=== PATIENT | female | born 1975 | race Caucasian/White ===

== ENCOUNTER 2025-05-02 18:39 | Emergency (ER) | payer MEDICAID, SELFPAY ==
[2025-05-02 18:41] VITALS: BP 132/97; PULSE 80; RESP 17; TEMP 37; O2SAT 98; BMI 35.0
--- OUTSIDE RECORDS SUMMARY | 2025-05-02 18:45 | XMS_ITS | Clinical Summary ---
Author Organization [facility] Rossy ezequiel [place] Address [address] [place] [address] Phone Care Team Providers Care Line Up Worker Name Role Phone Unavailable Primary Care Provider Unavailabl e Allergies Active Allergy Reactions Criticality Noted Date Comments Hydroxyzine Nausea and Vomiting,Dizziness Low 12/24 Nortriptyline Other (See Comments),Weakness Low Nortriptyline Angioedema High 12/24/2018 Medications diazepam (VALIUM) 2 mg Oral tablet Take 2 mg by mouth every 6 hours as needed. Active albuterol (PROVENTIL,VENTOL IN) 2.5 mg/0.5 mL Solution for Nebulization Take 2.5 mg by inhalation one time only. Active apixaban (ELIQUIS) 5 mg tablet Take by mouth 2 times daily. Active budesonide-formot charline (SYMBICORT) 160-4.5 mcg/actuation HFA Aerosol Inhaler Take 2 Puffs by inhalation 2 times daily. Active metoprolol succinate (TOPROL XL) 25 mg Extended Release 24 hour tablet Take 25 mg by mouth daily. Active pantoprazole (PROTONIX) 40 mg Tablet, Delayed Release (E.C.) Take 40 mg by mouth daily. Active benzonatate (TESSALON) 100 mg capsule Take 100 mg by mouth 3 times daily as needed for Cough. Active selenium 100 mcg Tablet Take 100 mcg by mouth. Active sertraline (ZOLOFT) 25 mg tablet Take 25 mg by mouth every 12 hours. 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 Gender Identity Not on file Sexual Orientation Not on file Last Filed Vital Signs Vital Sign Reading Time Taken Comments Blood Pressure 115/81 12/24/2018 2:00 AM CDT Pulse 62 03/08/2012 3:53 PM CDT Temperature 36.4 C (97.6 F) 12/24/2018 1:45 AM CDT Respiratory Rate 10 12/24/2018 2:00 AM CDT Oxygen Saturation 98% 12/24/2018 1:45 AM CDT Inhaled Oxygen Concentration - - Weight - - Height 172.7 cm (5' 8 ) 03/08/2012 3:53 PM CDT Body Mass Index - - Plan of Treatment Health Maintenance Due Date Last Done Comments DTAP/TDAP/TD VACCINES (1 - Tdap) 02/26/1995 HEPATITIS B VACCINES (1 of 3 - 19+ 3-dose series) 09/1994 HPV/Cotest (21-29) 02/26/1997 CERVICAL CANCER SCREENING 02/26/2006 HPV/Cotest (30-65) 02/26/2006 PAP SMEAR 02/26/2006 BREAST CANCER SCREENING 2016 COLORECTAL SCREENING 02/26/2021 Colorectal Cancer Screening 02/26/2021 FIT-DNA Q 3 years 02/26/2021 FIT/FOBT Q 1 year 02/26/2021 Flex Sig/CT Colonography Q 5 years 02/26/2021 INFLUENZA VACCINE (#1) 2025 [facility] [address] [place] [address]
--- OUTSIDE RECORDS SUMMARY | 2025-05-02 18:45 | XMS_ITS | Encounter Summary ---
Author Organization [facility] Address 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
--- OUTSIDE RECORDS SUMMARY | 2025-05-02 18:45 | XMS_ITS | Clinical Summary ---
Author Organization [facility] Address [address] [place] [address] Phone Care Team Providers Care Taxation Agent Name Role Phone Unavailable Primary Care Provider Unavailabl e Medications benzonatate (TESSALON) 100 mg capsule Take 100 mg by mouth 3 times daily as needed for Cough. 9 Active albuterol (PROVENTIL,VENTOL IN) 2.5 mg/0.5 mL Solution for Nebulization Take 2.5 mg by inhalation one time only. 9 Active metoprolol succinate (TOPROL XL) 25 mg Extended Release 24 hour tablet Take 25 mg by mouth daily. 9 Active pantoprazole (PROTONIX) 40 mg Tablet, Delayed Release (E.C.) Take 40 mg by mouth daily. 9 Active selenium 100 mcg Tablet Take 100 mcg by mouth. 9 Active sertraline (ZOLOFT) 25 mg tablet Take 25 mg by mouth every 12 hours. 9 Active budesonide-formot Viv (SYMBICORT) 160-4.5 mcg/actuation HFA Aerosol Inhaler Take 2 Puffs by inhalation 2 times daily. 9 Active apixaban (ELIQUIS) 5 mg tablet Take by mouth 2 times daily. 9 Active Active Problems Problem Noted Date Diagnosed Date Benign paroxysmal vertigo 03/14/2012 Encounters Date Type Department Care Team Description 04/28/2025 External Device Data [facility] ABSTRACTION Provider, Abstract 04/22/2025 External Device Data [facility] ABSTRACTION Provider, Abstract 04/21/2025 External Device Data [facility]CTION Provider, Abstract 04/15/2025 External Device Data [facility]STRACTION Provider, Abstract 04/14/2025 External Device Data [facility]STRACTION Provider, Abstract 03/11/2025 External Device Data [facility]STRACTION Provider, Abstract 03/10/2025 External Device Data [facility] ABSTRACTION Provider, Abstract from Last 3 Months Family History Medical History Relation Name Comments [...] on file 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 Gender Identity Not on file Sexual Orientation Not on file Last Filed Vital Signs Vital Sign Reading Time Taken Comments Blood Pressure 115/81 12/24/2018 2:00 AM CDT Pulse - - Temperature 36.4 C (97.6 F) 12/24/2018 1:45 AM CDT Respiratory Rate 10 12/24/2018 2:00 AM CDT Oxygen Saturation - - Inhaled Oxygen Concentration - - Weight - - Height - - Body Mass Index - - Plan of Treatment Health Maintenance Due Date Last Done Comments DTAP/TDAP/TD VACCINES (1 - Tdap) 02/26/1995 HEPATITIS B VACCINES (1 of 3 - 19+ 3-dose series) 09/1994 BREAST CANCER SCREENING 2016 COLORECTAL SCREENING 02/26/2021 Colorectal Cancer Screening 02/26/2021 FIT-DNA Q 3 years 02/26/2021 FIT/FOBT Q 1 year 02/26/2021 Flex Sig/CT Colonography Q 5 years 02/26/2021 INFLUENZA VACCINE (#1) 2025 Insurance MEDICAID [facility] MEDICAID
--- NOTE | 2025-05-02 19:08 | XRR_ITS ---
PROCEDURE INFORMATION: Exam: XR Left Knee Exam date and time: 05/02/2025 7:10 PM Age: 50 years old Clinical indication: Pain; Knee; Left; Additional info: Lt knee pain/swelling post fall today; Abrasion to lt patellar area TECHNIQUE: Imaging protocol: Radiologic exam of the left knee. Views: 3 views. COMPARISON: CR (LOW EXM, ) 05/02/2025 7:10 PM FINDINGS: Bones/joints: Normal. Soft tissues: Normal. XR/XR knee LT 3V* [id number] IMPRESSION: No acute findings.
--- NOTE | 2025-05-02 19:08 | CTR_ITS ---
PROCEDURE INFORMATION: Exam: CT Head Without Contrast Exam date and time: 05/02/2025 7:24 PM Age: 50 years old Clinical indication: Injury or trauma; Fall; Blunt trauma (contusions or hematomas); Prior surgery; Surgery date: 6+ months; Surgery type: Cerebral anuerysm coiling 2019; Additional info: Blunt trauma/fall; HX cerebral anuerysm coiling 2019 TECHNIQUE: Imaging protocol: Computed tomography of the head without contrast. Radiation optimization: All CT scans at this facility use at least one of these dose optimization techniques: automated exposure control; mA and/or kV adjustment per patient size (includes targeted exams where dose is matched to clinical indication); or iterative reconstruction. COMPARISON: No relevant prior studies available. RADIATION DOSE METRICS: Total DLP (mGy-cm): 296 FINDINGS: Brain: Normal. No hemorrhage. Unremarkable white matter. No mass effect. Cerebral ventricles: No ventriculomegaly. Paranasal sinuses: Visualized sinuses are unremarkable. No fluid levels. Mastoid air cells: Visualized mastoid air cells are well aerated. Bones: Unremarkable. No acute fracture. Soft tissues: Unremarkable. Vasculature: Vascular coils adjacent to the right internal carotid artery. CT/CT head wo con* [id number] IMPRESSION: No acute intracranial abnormality.
--- NOTE | 2025-05-02 19:08 | XRR_ITS ---
PROCEDURE INFORMATION: Exam: XR Left Ankle Exam date and time: 05/02/2025 7:10 PM Age: 50 years old Clinical indication: Pain; Ankle and foot; Left; Additional info: Lt ankle pain/swelling post fall today TECHNIQUE: Imaging protocol: Radiologic exam of the left ankle. Views: 3 or more views. COMPARISON: CR (LOW EXM, ) 05/02/2025 7:10 PM FINDINGS: Bones/joints: Normal. Soft tissues: Normal. XR/XR ankle LT min 3V* [id number] IMPRESSION: No acute findings.
--- NOTE | 2025-05-02 19:30 | ED_ITS ---
HPI - Fall General: Chief Complaint: Fall Stated Complaint: fall Time Seen by Provider: 05/02/25 18:41 History of Present Illness: Patient is a 50-year-old female who presents after a fall that occurred when she was standing on a chair that was elevated on a pallet (approximately 2 feet high). The chair broke underneath her, causing her to fall. She landed half on the pallet and half on the ground, with the left side of her body taking the brunt of the impact. Additionally, a heavy board (described as 2x3x14) fell and struck her head after she had fallen. The patient reports pain primarily in her left knee, which she describes as radiating up and down from mid-knee. She also reports pain in her left ankle and has a 'goose egg' on her head where the board struck her. She denies loss of consciousness during the event. The patient has not been able to bear weight on her left lower extremity since the injury. She initially had wrist pain but reports it has improved and believes it was just bruised. Related Data Previous Rx's ?Medication ?Instructions ?Recorded hydrocodone 5 mg-acetaminophen 325 1 tab PO Q8H PRN pa in #7 tabs 05/02/25 mg tablet ondansetron 4 mg disintegrating 4 mg PO Q6H PRN nausea and 05/02/25 tablet vomiting #14 tabs Allergies Allergy/AdvReac Type Severity Reaction Status Date / Time amitriptyline Allergy Unknown Verified 05/02/25 20:47 aripiprazole Allergy Unknown Verified 05/02/25 20:47 bupropion Allergy Unknown Verified 05/02/25 20:47 ciprofloxacin Allergy Unknown Verified 05/02/25 20:47 duloxetine (From Cymbalta) Allergy Unknown Verified 05/02/25 20:47 hydroxyzine Allergy Unknown Verified 05/02/25 20:47 lamotrigine Allergy Unknown Verified 05/02/25 20:47 lurasidone Allergy Unknown Verified 05/02/25 20:47 morphine Allergy ADR-Chest Verified 05/02/25 19:57 Pain nortriptyline Allergy Unknown Verified 05/02/25 20:47 quetiapine (From Seroquel) Allergy Unknown Verified 05/02/25 20:47 Physical Exam Const: COMMON NORMALS: no acute distress GENERAL APPEARANCE: cooperative; not ill appearing and not frail appearing HENMT: COMMON NORMALS: normocephalic and Normal external nose present HEAD & SCALP: normocephalic and hematoma (Right frontotemporal) FACE & SINUS: normal facial exam and face symmetric NOSE: Normal external nose present Eye: COMMON NORMALS: Equal, round and reactive pupils present and EOMs intact bilaterally PUPIL: Yes Equal, round and reactive pupils present Neck/C-Spine: GENERAL: Yes trachea midline Chest: CHEST: Yes Symmetrical chest wall rise Resp: COMMON NORMALS: normal respiratory effort, No retractions, No use of accessory muscles and clear to auscultation bilaterally AUSCULTATION: clear to auscultation bilaterally Cardio: COMMON NORMALS: regular rate and regular rhythm RATE: regular rate RHYTHM: regular rhythm GI: COMMON NORMALS: Normal to inspection, nondistended, normoactive bowel sounds present Extremity: COMMON NORMALS: no pedal edema Neuro: ABHIJEET COMA SCALE: document GCS findings Abhijeet coma scale eye opening: Spontaneous [place] coma scale verbal response: Orientated [place] coma scale motor response: Obey commands Abhijeet coma scale total score: 15 SENSORY EXAM: Yes extremities (intact) Psych: COMMON NORMALS: speech normal SPEECH: Yes normal speech Skin: COMMON NORMALS: no rashes or lesions noted GENERAL SKIN EXAM: no rashes or lesions noted Course Vital Signs: Vital signs: Vital Signs Temperature 98.6 F 05/02/25 18:41 Pulse Rate 79 05/02/25 21:32 Respiratory Rate 16 05/02/25 21:32 Blood Pressure 139/78 05/02/25 21:32 Pulse Oximetry 94 05/02/25 21:32 Oxygen Delivery Me thod Room Air 05/02/25 18:41 MDM - Fall Medical Decision Making CT negative. Ankle and knee x-rays are negative. She is very tender over her knee. Will put her in a knee immobilizer. Give her crutches. She will follow- up with orthopedics. She lives in [place] currently, so she will follow-up with there. Lab Data Radiology Impressions Ankle X-Ray 05/02/25 19:08 IMPRESSION: No acute findings. Head CT 05/02/25 19:08 IMPRESSION: No acute intracranial abnormality. Knee X-Ray 05/02/25 19:08 IMPRESSION: No acute findings. All radiology interpretation(s) finalized by discharge Discharge Plan Discharge Patient Disposition: Home Clinical Impression: Contusion of scalp Contusion of knee Qualifiers: Encounter type: initial encounter Laterality: left Qualified Code(s): S80.02XA - Contusion of left knee, initial encounter Condition: Stable Prescriptions: New hydrocodone-acetaminophen 5-325 mg tablet 1 tab PO Q8H PRN (Reason: pain) Qty: 7 0RF ondansetron 4 mg tablet,disintegrating 4 mg PO Q6H PRN (Reason: nausea and vomiting) Qty: 14 0RF Discharge Orders: Discharge ED (Routine); Ordered 05/02/25 Ordered By: Carroll Jason Referrals: Zuri Rausch MD [Family Provider, [facility]] Patient Instructions: Contusion in Adults (ED), Knee Pain (ED), Scalp Contusion in Adults (ED), Opioid Safety, Pain Management, Patient Portal & Fredis Instructions Activity Restrictions/Additional Instructions: You may use a knee immobilizer for up to 5 days. Weight-bear as tolerated. You may use crutches if weightbearing is not tolerable. Follow-up with orthopedics. Call Sunday for an appointment. Ice frequently, especially for the first 5 days. Return for any problems. 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
[2025-05-02] MEDS: ondansetron 2 mg/ML SDV 2 mL 4 MG IVP (19:53)
[2025-05-02] MEDS: HYDROmorphone 0.5 MG/0.5 ML INJ 1 MG IVP (20:45)
[2025-05-02 21:32] VITALS: BP 139/78; PULSE 79; RESP 16; O2SAT 94
== END 2025-05-02 21:25 | disposition home or self-care (01) ==
PROVIDERS: Emergency Provider Emergency Medicine; Family Provider Family Medicine
DX: S00.03XA Contusion of scalp, initial encounter (principal); S80.02XA Contusion of left knee, initial encounter; W07.XXXA Fall from chair, initial encounter; W20.8XXA Other cause of strike by thrown, projected or falling object, initial encounter
CPT/HCPCS: 70450; 73562; 73610; 96374; 96375; 99285; J1171; J2270; J2405; L1830